=== PATIENT | female | born 1960 | race Caucasian/White ===

== ENCOUNTER 2017-03-13 23:36 | Observation (INO) | payer OTHER ==
[2017-03-13] MEDS ORDERED: ONDANSETRON DISINTEGRATING 4 MG TAB ONE (23:42)
[2017-03-13] MEDS ORDERED: ONDANSETRON DISINTEGRATING 4 MG TAB PO ONE (23:44)
[2017-03-14] MEDS ORDERED: HYDROmorphONE/DILAUDID 1 MG/ML SYR IVP ONE ×2 (00:04→00:48)
[2017-03-14] MEDS ORDERED: NS 1,000 ML IV ONE ×2 (00:04)
[2017-03-14 00:29] LABS: ALANINE AMINOTRANSFERASE 36 IU/L (9-52); ALBUMIN 4.5 g/dL (3.5-5.0); ALKALINE PHOSPHATASE 144 IU/L (38-126); ANION GAP 11 mEq/L (8-16); ASPARTATE AMINOTRANSFERASE 23 IU/L (14-46); BILIRUBIN,TOTAL 0.9 mg/dL (0.1-1.4); BILIRUBIN-CONJUGATED 0.6 mg/dL (0.0-0.5); BILIRUBIN-UNCONJUGATED 0.3 mg/dL (0.0-1.1); CALCIUM 9.8 mg/dL (8.5-10.4); CARBON DIOXIDE 26 mEq/l (22-31); CHLORIDE 102 mEq/L (97-110); CREATININE 0.5 mg/dL (0.6-1.0); GLOMERULAR FILTRATION RATE > 60; GLUCOSE 148 mg/dL (70-100); POTASSIUM 3.9 mEq/L (3.5-5.2); SODIUM 139 mEq/L (134-144); TOTAL PROTEIN 7.7 g/dL (6.3-8.2)
[2017-03-14 01:11] LABS: % IMMATURE GRANULYOCYTES 0.6 % (0.0-1.1); ABSOLUTE IMMATURE GRANULOCYTES 0.12 10^3/uL (0.00-0.10); ADD DIFF? NO; ADD MORPH? NO; ADD SCAN? NO; ATYPICAL LYMPHOCYTE FLAG 0 (0-99); FRAGMENT RBC FLAG 0 (0-99); HEMOGLOBIN 14.5 g/dL (12.6-16.3); LEFT SHIFT FLG 0 (0-99); LIPEMIA HEMOLYSIS FLAG 80 (0-99); MEAN CELL HEMOGLOBIN 31.1 pg (27.9-34.1); MEAN CELL HEMOGLOBIN CONCENTR. 33.7 g/dL (32.4-36.7); MEAN CELL VOLUME 92.3 fL (81.5-99.8); MEAN PLATELET VOLUME 10.2 fL (8.7-11.7); PLATELET CLUMPS FLAG 0 (0-99); PLATELET COUNT 408 10^3/uL (150-400); RED BLOOD CELL COUNT 4.66 10^6/uL (4.18-5.33); RED CELL DISTRIBUTION WIDTH 12.8 % (11.5-15.2)
[2017-03-14] MEDS ORDERED: IOPAMIDOL (ISOVUE-300) 100 ML BTL ONE (01:14)
[2017-03-14] MEDS ORDERED: ONDANSETRON 4 MG/2 ML VIAL IVP ONE (01:43)
[2017-03-14] MEDS ORDERED: ERTAPENEM 1 GM in NS 100 ML IV ONE (01:44)
[2017-03-14 01:59] LABS: COLOR YELLOW; LEUKOCYTE ESTERASE,URINE NEGATIVE (NEGATIVE); NITRITE,URINE NEGATIVE (NEGATIVE)
--- NOTE | 2017-03-14 02:31 | EDPHY ---
H & P Stated Complaint: RLQ pain, nausea Time Seen by Provider: 03/13/17 23:52 HPI/ROS: HPI The patient presents with right lower quadrant pain which has been present for the last 24 hours, started suddenly and is getting progressively worse. It is intense pain which feels like a hot poker. It does not radiate. It is associated with nausea, anorexia, chills. She has no prior history of similar. She has no previous abdominal operations. Her last meal was at noon. REVIEW OF SYSTEMS Constitutional: No fever, positive for chills. Eyes: No discharge. ENT: No sore throat. Cardiovascular: No chest pain, no palpitations. Respiratory: No cough, no shortness of breath. Gastrointestinal: See HPI Genitourinary: No hematuria. Musculoskeletal: No back pain. Skin: No rashes. Neurological: No headache. PMHx: Healthy, no history of abdominal operations Soc Hx: Nonsmoker PHYSICAL General Appearance: Alert, uncomfortable appearing Eyes: Pupils equal and round no pallor or injection ENT, Mouth: Mucous membranes moist Respiratory: There are no retractions, lungs are clear to auscultation Cardiovascular: Regular rate and rhythm Gastrointestinal: Abdomen is soft with tenderness in the right lower quadrant with voluntary guarding, positive Rovsing's Neurological: A&O, moves all extremities Skin: Warm and dry, no rashes Musculoskeletal: Neck is supple non tender Extremities: symmetrical, full range of motion Psychiatric: Patient is oriented X 3, there is no agitation Source: Patient Exam Limitations: No limitations - Personal History Current Tetanus/Diphtheria Vaccine: Unsure Current Tetanus Diphtheria and Acellular Pertussis (TDAP): Unsure - Medical/Surgical History Hx Asthma: No Hx Chronic Respiratory Disease: No Hx Diabetes: No Hx Cardiac Disease: No Hx Renal Disease: No Hx Cirrhosis: No Hx Alcoholism: No Hx HIV/AIDS: No Hx Splenectomy or Spleen Trauma: No Other PMH: denies - Social History Smoking Status: Former smoker Constitutional: Initial Vital Signs Temperature (C) 36.6 C 03/13/17 23:38 Heart Rate 84 03/13/17 23:38 Respiratory Rate 16 03/13/17 23:38 Blood Pressure 149/99 H 03/13/17 23:38 O2 Sat (%) 96 03/13/17 23:38 O2 Delivery Mode Room Air Allergies/Adverse Reactions: No Known Allergies Allergy (Unverified 03/13/17 23:37) Home Medications: Medication Instructions Recorded Amoxicillin 500 mg PO BID #20 capsule 02/24/14 Estrogen,Con/M-Progest Acet 02/24/14 [Prempro 0.3 mg-1.5 mg Tablet] Medical Decision Making - Diagnostics Imaging Results: CT scan of abdomen pelvis performed with IV contrast demonstrates acute appendicitis with likely perforation, no free air, discussed with Dr. Vivas of Radiology. Imaging: Discussed imaging studies w/ call center recruiter Radiologist Differential Diagnosis: This is a 56-year-old healthy female who presents with 1 day of right lower quadrant pain associated with anorexia, nausea, chills. Differential diagnosis includes acute appendicitis, ovarian cyst, colitis. In the emergency room, an IV was established and the patient was given IV fluids and Dilaudid for her pain. She required several doses because the pain was severe. She had labs checked which revealed a profound leukocytosis. CT scan was performed which did demonstrate acute appendicitis. The patient was given a dose of Invanz. I consulted with Dr. Colón of surgery. He will take the patient to the operating room for definitive care. The patient is in agreement with this plan. - Data Points Laboratory Results: Laboratory Results 03/14/17 00:00 03/14/17 00:00 03/14/17 03/14/17 03/14/17 01:30 00:00 00:00 WBC 18.57 10^3/uL H 10^3/uL (3.80-9.50) RBC 4.66 10^6/uL 10^6/uL (4.18-5.33) Hgb 14.5 g/dL g/dL (12.6-16.3) Hct 43.0 % % (38.0-47.0) MCV 92.3 fL fL (81.5-99.8) MCH 31.1 pg pg (27.9-34.1) MCHC 33.7 g/dL g/dL (32.4-36.7) RDW 12.8 % % (11.5-15.2) Plt Count 408 10^3/uL H 10^3/uL (150-400) MPV 10.2 fL fL (8.7-11.7) Neut % (Auto) 86.8 % H % (39.3-74.2) Lymph % (Auto) 8.1 % L % (15.0-45.0) [place] % (Auto) 4.1 % L % (4.5-13.0) Eos % (Auto) 0.1 % L % (0.6-7.6) Baso % (Auto) 0.3 % % (0.3-1.7) Nucleat RBC Rel Count 0.0 % % (0.0-0.2) Absolute Neuts (auto) 16.12 10^3/uL H 10^3/uL (1.70-6.50) Absolute Lymphs (auto) 1.50 10^3/uL 10^3/uL (1.00-3.00) Absolute Monos (auto) 0.77 10^3/uL 10^3/uL (0.30-0.80) Absolute Eos (auto) 0.01 10^3/uL L 10^3/uL (0.03-0.40) Absolute Basos (auto) 0.05 10^3/uL 10^3/uL (0.02-0.10) Absolute Nucleated RBC 0.00 10^3/uL 10^3/uL (0-0.01) Immature Gran % 0.6 % % (0.0-1.1) Immature Gran # 0.12 10^3/uL H 10^3/uL (0.00-0.10) Sodium 139 mEq/L mEq/L (134-144) Potassium 3.9 mEq/L mEq/L (3.5-5.2) Chloride 102 mEq/L mEq/L (97-110) Carbon Dioxide 26 mEq/l mEq/l (22-31) Anion Gap 11 mEq/L mEq/L (8-16) BUN 8 mg/dL mg/dL (7-23) Creatinine 0.5 mg/dL L mg/dL (0.6-1.0) Estimated GFR > 60 Glucose 148 mg/dL H mg/dL (70-100) Calcium 9.8 mg/dL mg/dL (8.5-10.4) Total Bilirubin 0.9 mg/dL mg/dL (0.1-1.4) Conjugated Bilirubin 0.6 mg/dL H mg/dL (0.0-0.5) Unconjugated Bilirubin 0.3 mg/dL mg/dL (0.0-1.1) AST 23 IU/L IU/L (14-46) ALT 36 IU/L IU/L (9-52) Alkaline Phosphatase 144 IU/L H IU/L (38-126) Total Protein 7.7 g/dL g/dL (6.3-8.2) Albumin 4.5 g/dL g/dL (3.5-5.0) Lipase 35.0 IU/L IU/L (23-300) Urine Color YELLOW Urine Appearance CLEAR Urine pH 7.0 (5.0-7.5) Ur Specific [place] 1.008 (1.002-1.030) Urine Protein NEGATIVE (NEGATIVE) Urine Ketones 1+ H (NEGATIVE) Urine Blood NEGATIVE (NEGATIVE) Urine Nitrate NEGATIVE (NEGATIVE) Urine Bilirubin NEGATIVE (NEGATIVE) Urine Urobilinogen NEGATIVE EU EU (0.2-1.0) Ur Leukocyte Esterase NEGATIVE (NEGATIVE) Urine Glucose NEGATIVE (NEGATIVE) Medications Given: Discontinued Medications Hydromorphone HCl (Dilaudid) 0.5 mg IVP EDNOW ONE Stop: 03/14/17 00:05 Last Admin: 03/14/17 00:15 Dose: 0.5 mg Hydromorphone HCl (Dilaudid) 0.5 mg IVP EDNOW ONE Stop: 03/14/17 00:49 Last Admin: 03/14/17 01:05 Dose: 0.5 mg Sodium Chloride (Ns) 1,000 mls @ 0 mls/hr IV ONCE ONE PRN Reason: Wide Open Stop: 03/14/17 00:05 Last Admin: 03/14/17 01:30 Dose: 1,000 mls Sodium Chloride (Ns) 1,000 mls @ 0 mls/hr IV ONCE ONE PRN Reason: Wide Open Stop: 03/14/17 00:05 Last Admin: 03/14/17 00:15 Dose: 1,000 mls Ertapenem 1 gm/ Sodium (Chloride) 100 mls @ 200 mls/hr IV EDNOW ONE PRN Reason: Protocol Stop: 03/14/17 02:13 Last Admin: 03/14/17 02:42 Dose: 100 mls Lorazepam (Ativan Injection) 1 mg IVP ONCE ONE Stop: 03/14/17 03:05 Last Admin: 03/14/17 03:07 Dose: 1 mg Ondansetron HCl (Zofran Odt) 4 mg PO EDNOW ONE Stop: 03/13/17 23:45 Last Admin: 03/13/17 23:44 Dose: 4 mg Ondansetron HCl (Zofran) 4 mg IVP EDNOW ONE Stop: 03/14/17 01:44 Last Admin: 03/14/17 01:45 Dose: 4 mg Departure - Departure Disposition: [facility] Inpatient Acute Clinical Impression: Acute appendicitis Qualifiers: Acute appendicitis type: with generalized peritonitis Qualified Code(s): K35.2 - Acute appendicitis with generalized peritonitis Leukocytosis Qualifiers: Leukocytosis type: unspecified Qualified Code(s): D72.829 - Elevated white blood cell count, unspecified Condition: Fair
[2017-03-14] MEDS ORDERED: HYDROmorphONE/DILAUDID 1 MG/ML SYR ONE (02:50)
[2017-03-14] MEDS: HYDROmorphONE/DILAUDID 1 MG/ML SYR IVP PRN ×2 (02:55→07:43)
[2017-03-14] MEDS ORDERED: BUPIVACAINE 0.25% 30 ML SDV ONE (02:56)
--- NOTE | 2017-03-14 02:59 | PDGENHP ---
History and Physical History and Physical: CC: Abd pain HPI: 56 y/o female with abd pain starting yesterday and worsening last night. She had nausea without emesis and feels chilled. She presented to the [facility] ED and was seen by Dr. Monte and surgical consultation was requested. PMH: NKDA no prior abdominal surgeries SH: works in [employer] In[employer] FH: [place] ROS: denies chest pain, SOB, cough/sputum/diarrhea/jaundice last BM yesterday PE: Pleasant woman in moderate distress Lungs: clear to ausc CVS: RRR w/out murmurs Abd: + BS, diffuse lower abdominal tenderness with guarding Pelvic/rectal: not performed wbc 18K CT reviewed/appendicolith with acute appendicitis and kwan-appendiceal phlegmon Imp: acute appendicitis/possibly perforated Rec: open appendectomy/possible drainage We discussed surgery, expected recovery and risks. Infomed consent was obtained IV Invanz has been administered in the ED SCDs surgery has been scheduled. Leroy Colón MD, FACS
[2017-03-14] MEDS ORDERED: LORazepam 2 MG/ML INJ IVP ONE (03:04)
[2017-03-14] MEDS ORDERED: LORazepam 2 MG/ML INJ ONE (03:05)
[2017-03-14] MEDS ORDERED: fentaNYL 100 MCG/2 ML INJ ONE ×2 (03:22→04:01)
[2017-03-14] MEDS ORDERED: PROPOFOL 200 MG/20 ML VIAL ONE ×2 (03:22)
[2017-03-14] MEDS ORDERED: MIDAZOLAM 2 MG/2 ML VIAL ONE (03:23)
[2017-03-14] MEDS ORDERED: DEXAMETHASONE 4 MG/ML VIAL ONE (04:18)
[2017-03-14] MEDS ORDERED: ONDANSETRON 4 MG/2 ML VIAL ONE (04:18)
[2017-03-14] MEDS ORDERED: SUGAMMADEX SODIUM 200 MG/2 ML VIAL IVP ONE (04:20)
[2017-03-14] MEDS ORDERED: KETOROLAC 30 MG/1 ML SDV ONE (04:20)
[2017-03-14] MEDS ORDERED: ONDANSETRON 4 MG/2 ML VIAL IVP PRN (04:37)
[2017-03-14] MEDS ORDERED: MAGNESIUM HYDROXIDE 30 ML UDCUP PO PRN (04:37)
[2017-03-14] MEDS ORDERED: TEMAZEPAM 15 MG CAP PO PRN (04:37)
--- NOTE | 2017-03-14 04:46 | POSTOPPROG ---
Post Op Note Date of Operation: 03/14/17 Surgeon: Eugenio Colón (, FACS) Anesthesiologist: Bob Lazo MD Anesthesia: GET(General Endotracheal) Pre-op Diagnosis: appendicits Procedure: appendectomy Findings: acute suppurative appendicitis/early gangrene Inf/Abcess present in the surg proc area at time of surgery?: Yes Depth: Organ Space EBL: Minimal Specimen(s): appendix
[2017-03-14] MEDS ORDERED: LR 1,000 ML IV SCH (05:00)
--- NOTE | 2017-03-14 06:39 | GOP ---
[f rep st] OPERATIVE REPORT DATE OF OPERATION: 03/14/2017 SURGEON: Eugenio Colón MD, FACS ANESTHESIA: General endotracheal. ANESTHESIOLOGIST: Bob Lazo MD PREOPERATIVE DIAGNOSIS: Acute appendicitis. POSTOPERATIVE DIAGNOSIS: Acute gangrenous appendicitis. PROCEDURE PERFORMED: Appendectomy. FINDINGS: Acute appendicitis with evidence of early gangrene. No minna perforation. ESTIMATED BLOOD LOSS: 10 mL or less. DESCRIPTION OF PROCEDURE: After informed consent was obtained, the patient was brought to the operating room and placed under general anesthesia. The abdomen was prepped and draped in usual fashion. Before proceeding, a time-out identification of the patient was performed. 0.25% Marcaine was used to establish a regional field block. The right lower quadrant incision was made and carried through the skin, subcutaneous tissues and Zohreh fascia. Hemostasis was secured with cautery. The anterior external oblique fascia was incised with cautery. The transversus and internal oblique muscles were retracted laterally. The peritoneum was identified after the lateral border of the rectus sheath incised and the peritoneal cavity was entered. There was a small amount of non foul-smelling cloudy fluid in the right lower quadrant adjacent to the cecum and ascending colon. The specimen was submitted for aerobes and anaerobes. The appendix was mobilized into the incision, noted to be quite dilated with early gangrenous change, but no minna perforation. The mesoappendix was taken down with clamps and ligated with 2-0 Vicryl ligatures. The appendix was then from the cecum with a single fire of the MADELINE stapler and removed from the field. The operative site appeared hemostatic. The cecum was returned to the abdominal cavity. The right pericolic gutter, central abdomen, left pericolic gutter and pelvis were irrigated and aspirated until the effluent was clear. The peritoneum was closed with 3-0 Vicryl suture. Subcutaneous tissues and muscular layers were irrigated and approximated with #1 continuing PDS suture. Subcutaneous tissues were further infiltrated with 0.25% Marcaine and closed with 4-0 Monocryl suture for a subcuticular closure of the skin. Mastisol and Steri-Strips were applied. The patient was returned extubated to the recovery room in satisfactory condition. Needle, sponge, and instrument count correct. COMPLICATIONS: None. Copy requested to: Dr. Cardoza /[id number]/MODL MTDD
[2017-03-14] MEDS: IBUPROFEN 600 MG TAB PO SCH ×3 (07:42→21:25)
[2017-03-14] MEDS ORDERED: ERTAPENEM 1 GM in NS 100 ML IV SCH (09:00)
[2017-03-14] MEDS: ENOXAPARIN 40 MG/0.4 ML SYR SC SCH (09:45)
[2017-03-14] MEDS: HYDROCODONE/APAP 5/325 TAB PO PRN ×3 (13:33→21:28)
[2017-03-15] MEDS: HYDROCODONE/APAP 5/325 TAB PO PRN ×2 (03:47→08:24)
[2017-03-15 03:51] VITALS: RESP 16; O2SAT 90
[2017-03-15 04:51] LABS: % IMMATURE GRANULYOCYTES 0.4 % (0.0-1.1); ABSOLUTE IMMATURE GRANULOCYTES 0.06 10^3/uL (0.00-0.10); ADD DIFF? NO; ADD MORPH? NO; ADD SCAN? NO; ATYPICAL LYMPHOCYTE FLAG 0 (0-99); FRAGMENT RBC FLAG 0 (0-99); HEMATOCRIT 35.4 % (38.0-47.0); HEMOGLOBIN 11.7 g/dL (12.6-16.3); LEFT SHIFT FLG 0 (0-99); LIPEMIA HEMOLYSIS FLAG 80 (0-99); MEAN CELL HEMOGLOBIN 30.5 pg (27.9-34.1); MEAN CELL HEMOGLOBIN CONCENTR. 33.1 g/dL (32.4-36.7); MEAN CELL VOLUME 92.4 fL (81.5-99.8); MEAN PLATELET VOLUME 10.4 fL (8.7-11.7); PLATELET CLUMPS FLAG 0 (0-99); PLATELET COUNT 309 10^3/uL (150-400); RED BLOOD CELL COUNT 3.83 10^6/uL (4.18-5.33); RED CELL DISTRIBUTION WIDTH 13.1 % (11.5-15.2)
[2017-03-15] MEDS: IBUPROFEN 600 MG TAB PO SCH (05:42)
--- NOTE | 2017-03-15 07:11 | PDDCSUM ---
Discharge Summary Discharge Summary: DOA 03/14/17 DOD 03/15/17 DC Dx: appendicitis Procedure: 03/14/17 appendectomy Course: Susanne presented with acute appendicitis and underwent open appendectomy for a gangrenous appendicitis. She received one gram Ertapenam pre-op and purulent kwan-appendiceal fluid was cultured. Her wbc fell from 18 to 13 overnight and she was afebrile post op. Her lungs were clear post op and she did not require supplemental O2. She was tolerating a soft diet and her surgical site was uncomplicated. She was discharge home to continue antibiotics with po Augmentin 875 mg BID. She was instructed in activity and wound care and will follow up in my office in one to two weeks. DC meds: Tobyhanna #20 Augmentin #10 Senokot-S #30 Ibuprofen #30 S MD Katarzyna, FACS
[2017-03-15] MEDS ORDERED: ERTAPENEM 1 GM in NS 100 ML IV ONE (07:56)
[2017-03-15] MEDS: ENOXAPARIN 40 MG/0.4 ML SYR SC SCH (08:10)
[2017-03-15 08:17] VITALS: BP 120/77; PULSE 71; TEMP 98.5
[2017-03-15] MEDS ORDERED: SENNOSIDES/DOCUSATE SODIUM TAB PO SCH (09:00)
[2017-03-16] MEDS ORDERED: AMOXICILLIN/CLAVULANATE POT 875/125 MG TAB PO SCH (09:00)
== END 2017-03-15 09:45 | disposition home or self-care (01) ==
LOC: F3N 03-14 05:45
PROVIDERS: ADMIT Surgery; ATTEND Surgery
PROC: 0DTJ0ZZ Resection of Appendix, Open Approach (ICD-10-PCS; principal; 2017-03-14 03:30)
DX: K35.80 Unspecified acute appendicitis (principal); Z87.891 Personal history of nicotine dependence
CPT/HCPCS: 44950; 74177; 96365; 96375; 96376; 99285; G0378; J1100; J1170; J1335; J1650; J1885; J2060; J2250; J2405; J2704; J3010; Q9967